=== PATIENT | female | born 1995 | race Caucasian/White ===

== ENCOUNTER 2019-04-25 15:13 | Emergency (ER) | payer OTHER ==
[2019-04-25 15:22] VITALS: BP 111/64; PULSE 76; TEMP 98; BMI 23.0
--- NOTE | 2019-04-25 16:25 | PDOC ---
History of Present Illness - General Stated Complaint: MISCARRIAGE Time Seen by Provider: 04/25/19 16:00 Past History - Past Medical History Allergies/Adverse Reactions: Allergies Allergy/AdvReac Type Severity Reaction Status Date / Time No Known Allergies Allergy Verified 04/25/19 15:22 Home Medications: Ambulatory Orders Ferrous Sulfate 1 tab PO DAILY 04/03/16 Tablet 1 tab PO DAILY 04/03/16 Ibuprofen [Motrin -] 600 mg PO TID #21 tablet 06/01/16 Asthma: No Cancer: No Cardiac Disorders: No COPD: No Diabetes: No HTN: No Seizures: No Thyroid Disease: No - Psycho Social/Smoking Cessation Hx Smoking History: Never smoked Hx Alcohol Use: No Drug/Substance Use Hx: No Hx Substance Use Treatment: No *Physical Exam - Vital Signs Last Vital Signs Temp Pulse Resp BP Pulse Ox 98 F 76 18 111/64 100 04/25/19 15:18 04/25/19 15:18 04/25/19 15:18 04/25/19 15:18 04/25/19 15:18 ED Treatment Course - LABORATORY CBC & Chemistry Diagram: 04/25/19 16:35 04/25/19 16:35 Discharge - Discharge Information Problems reviewed: Yes Clinical Impression/Diagnosis: Missed Condition: Stable Disposition: HOME - Admission No - Follow up/Referral Referrals: Yissel Adam MD [Primary Care Provider] - - Patient Discharge Instructions Patient Printed Discharge Instructions: DI for Miscarriage Additional Instructions: You were having a missed as diagnosed by your [employer]. Please keep your scheduled appointment for 05/02 for the procedure. Your blood type is O+. Please call your [employer]'s office tomorrow they are expecting a call from you. They do want to see you either tomorrow or Thursday. Your blood work did not show any infection today. Your urine was normal. Return to the ER for worsening pain, fever, soaking more than 1 pad an hour if you start bleeding, vomiting, or if you have any changes in your symptoms. - Post Discharge Activity Work/Back to School Note: Back to Work
[2019-04-25 16:55] LABS: BASO % 0.6 % (0-2.0); EOS % 1.3 % (0-4.5); HEMATOCRIT 39.8 % (32.4-45.2); HEMOGLOBIN 13.4 GM/dL (10.7-15.3); LYMPH % 26.7 % (8-40); MCH 30.5 pg (25.7-33.7); MCHC 33.6 g/dl (32.0-36.0); MEAN CELL VOLUME 90.8 fl (80-96); MONO % 9.2 % (3.8-10.2); NEUT % 62.2 % (42.8-82.8); PLATELET COUNT 201 K/MM3 (134-434); RBC 4.39 M/mm3 (3.60-5.2); RDW 13.2 % (11.6-15.6); WHITE BLOOD COUNT 8.4 K/mm3 (4.0-10.0)
[2019-04-25 16:57] LABS: URINE APPEARANCE CLOUDY; URINE BILIRUBIN NEGATIVE (NEGATIVE); URINE COLOR YELLOW; URINE GLUCOSE (UA) NEGATIVE (NEGATIVE); URINE KETONE TRACE (NEGATIVE); URINE LEUK ESTERASE NEGATIVE (NEGATIVE); URINE NITRITE NEGATIVE (NEGATIVE); URINE PROTEIN NEGATIVE (NEGATIVE); URINE UROBILINOGEN 0.2 mg/dL (0.2-1.0)
[2019-04-25 17:05] LABS: INR 0.94 (0.83-1.09); PROTHROMBIN TIME (PATIENT) 11.1 SEC (9.7-13.0)
[2019-04-25 17:15] LABS: ALBUMIN 4.2 g/dl (3.4-5.0); BILIRUBIN,TOTAL 0.1 mg/dL (0.2-1); BLOOD UREA NITROGEN 12.9 mg/dL (7-18); CALCIUM 9.2 mg/dL (8.5-10.1); CREATININE 0.5 mg/dL (0.55-1.3); POTASSIUM 3.9 mmol/L (3.5-5.1); TOT PROT 7.7 g/dl (6.4-8.2)
== END 2019-04-25 18:38 | disposition home or self-care (01) ==
LOC: JER 15:13
DX: O26.891 Other specified pregnancy related conditions, first trimester (principal); O02.1 Missed abortion; Z3A.09 9 weeks gestation of pregnancy
CPT/HCPCS: 36415; 80053; 81003; 84702; 85025; 85610; 86850; 86900; 86901; 87077; 87086; 99282-25